=== PATIENT | male | born 1965 | race Caucasian/White ===

== ENCOUNTER 2019-11-30 11:44 | Emergency (ER) | payer MEDICARE, MEDICAID ==
[2019-11-30] MEDS ORDERED: AMOXICILLIN500 M2 PO (13:22)
[2019-11-30] MEDS ORDERED: GABAPENTIN100 MG PO (13:31)
[2019-11-30] MEDS ORDERED: OMEPRAZOLE20 M2 PO (13:32)
[2019-11-30] MEDS ORDERED: PHENERGAN25 MG/TAB PO (13:34)
[2019-11-30] MEDS ORDERED: PROTONIX40 MG PO (13:34)
[2019-11-30] MEDS ORDERED: VISTARIL25 MG PO (13:35)
[2019-11-30] MEDS ORDERED: FLEXERIL5 MG PO (13:37)
[2019-11-30 13:40] VITALS: BP 105/67
== END 2019-11-30 13:40 | disposition home or self-care (01) ==
LOC: ED 11:44
DX: K02.9 Dental caries, unspecified (principal); M84.68XA Pathological fracture in other disease, other site, initial encounter for fracture